=== PATIENT | female | born 1965 | race Caucasian/White ===

== ENCOUNTER 2024-04-21 08:52 | Emergency (ER) | payer OTHER, SELFPAY ==
[2024-04-21 08:54] VITALS: BP 160/86
--- NOTE | 2024-04-21 09:11 | EDRN ---
Dorcas Estes PA in room w/ pt at this time
--- NOTE | 2024-04-21 09:17 | ED.GENMED ---
History of Present Illness
General
Chief Complaint: Musculo-Skeletal Complaint
Time Seen by Provider: 04/21/24 09:07
History of Present Illness
History of Present Illness:
16-year-old female presents the emergency department for evaluation of severe left leg pain. She states has been ongoing for the past month. Saw her orthopedist at [facility] approximately 1 month ago and was diagnosed with a suspected left knee
status post intra-articular steroid injection. She states this did help for several weeks but the pain has been worsening over the past week. She is also reporting left hip and left tibial pain secondary to small amount of gait. Denies any falls
or trauma.
Review of Systems
Review of Systems
Allergies reviewed?: Yes
All Other Systems: ROS reviewed and negative except as documented in HPI and ROS
Phy Exam
Physical Exam
Physical Exam:
GEN: Well appearing, NAD, WDWN
HEENT: Oral mucosa moist, no scleral icterus
Cardiac: Regular rate
Lung: No respiratory distress, no tachypnea
MSK: No gross deformity or injuries. Left hip range of motion is normal with no reproduced pain. There is a mild left knee effusion with normal range of motion, no erythema and no pain with passive range of motion.
Skin: Good color, no pallor or jaundice, no rashes
Neuro: AO x3, moves all extremities freely
Psych: Calm, cooperative
Course
Orders/Labs/Results
Orders:
Orders
04/21/24 09:16
CR Hip - LT w/wo Pel 2-3 Vw* Urgent
Comment:
Reason For Exam: non traumatic pain
Include a pelvis x-ray?: No
CR Leg Tibia/fibula Left 2 Vw Urgent
Comment:
Reason For Exam: non traumatic pain
04/21/24 09:17
Ketorolac [Toradol] 30 mg IM NOW STA
Vital Signs
Initial and Last Documented VS:
Initial Vital Signs
Temp Pulse Resp BP Pulse Ox
98.0 F 72 16 160/86 98
04/21/24 08:54 04/21/24 08:54 04/21/24 08:54 04/21/24 08:54 04/21/24 08:54
Last Documented Vital Signs
Temp Pulse Resp BP Pulse Ox
98.0 F 59 16 131/61 94
04/21/24 08:54 04/21/24 09:33 04/21/24 09:33 04/21/24 09:33 04/21/24 09:33
MDM/Problems Addressed
MDM/Problems Addressed:
X-rays left hip and left tib-fib are unremarkable for acute pathology. This is likely a primary knee pathology given the obvious effusion. Recommend outpatient Ortho follow-up, will start NSAIDs as she is already on high-dose opiates each day
*Critical Care Note
Total Time (30-74mins, 75-104mins- exclusive of procedures): Not Applicable
ED Attending Note
-
Portions of this chart may have been created with voice recognition software.� Occasional wrong word or��sound alike� substitutions may have occurred due to the inherent limitations of voice recognition software.
Discharge Plan
Departure
Patient Disposition: Home (Routine Discharge)
Date of Disposition: 04/21/24
Time of Disposition: 09:48
Patient with high blood pressure during this ER visit?: No
Discharge Problem:
Internal derangement of left knee
Instructions: Knee Pain (DC)
Prescriptions:
New
celecoxib [Celebrex] 200 mg capsule
200 mg PO BID 10 Days Qty: 20 0RF
Referrals:
Rudi Munoz MD [Active] -
Adalberto Tapia MD [Family Provider] -
Interventions
Interventions:
*Risk Screen - Suicide Last Done: 04/21/24 08:54
*General Assessment Last Done: 04/21/24 09:27
*Neglect/Abuse Screening Last Done: 04/21/24 08:54
ED- Fall Risk Assessment Last Done: 04/21/24 09:28
*ED COVID-19 Vaccine History Last Done: 04/21/24 09:27
*Nursing Disposition Last Done: 04/21/24 10:00
ED-Musculoskeletal Assessment Last Done: 04/21/24 09:28
Discharge Date and Time
Discharge Date/Time: 04/21/24 10:00
Print Language: AZERI
[2024-04-21 09:30] VITALS: BMI 34.7
[2024-04-21] MEDS: TORADOL 30 MG IM (09:31)
[2024-04-21 09:33] VITALS: BP 131/61
== END 2024-04-21 10:00 | disposition home or self-care (01) ==
LOC: EMR 08:52
PROVIDERS: EMERGENCY PHYSICIAN Emergency Medicine; FAMILY PHYSICIAN Orthopaedic Surgery Hand Surgery
DX: M23.92 Unspecified internal derangement of left knee (principal)
CPT/HCPCS: 96372; 99284; 73502; 73590